=== PATIENT | female | born 1975 | race Asian ===

== ENCOUNTER 2025-05-30 03:11 | Emergency (ER) | payer OTHER ==
[~2025-05-30] VITALS: Ht 154.9 cm; Wt 65.0 kg
[2025-05-30 03:22] VITALS: TEMP 98.6
[2025-05-30] MEDS ORDERED: AMLO2.5T96 PO (04:36)
[2025-05-30] MEDS: ZOLPIDEM TARTRATE 5 MG TABLET PO ONE (06:03)
[2025-05-30 08:00] VITALS: BP 158/94; PULSE 80; RESP 16; O2SAT 99
== END 2025-05-30 08:19 | disposition home or self-care (01) ==
LOC: EMS 03:11
DX: I10 Essential (primary) hypertension (principal); G47.00 Insomnia, unspecified; Z79.899 Other long term (current) drug therapy
CPT/HCPCS: 99283